=== PATIENT | female | born 1960 | race Caucasian/White ===

== ENCOUNTER 2019-04-11 10:06 | Emergency (ER) | payer BC, SELFPAY ==
[2019-04-11 10:21] VITALS: BP 140/87; PULSE 65; RESP 16; TEMP 36.1; O2SAT 100
[2019-04-11 10:41] LABS: Bilirubin Negative (Negative); Blood Moderate (Negative); Clarity Clear; Glucose Negative (Negative); Ketones Negative (Negative); Leukocyte Esterase Negative (Negative); Nitrite Negative (Negative); Urobilinogen 0.2 EU/dL (Up TO 0.2); pH 5.5 (5-8)
[2019-04-11 10:45] LABS: Bacteria Rare HPF (Negative); C & S Indicated? No; Casts Negative LPF (Negative); Crystals Negative HPF (Negative); Epithelial Cells Rare HPF (Negative); Mucus Moderate (Negative); RBC 20-50 (0-2); WBC 0-2 HPF (0-5)
--- NOTE | 2019-04-11 10:59 | ED.GENADUL_ITS ---
Discharge Plan Disposition Patient Disposition: HOME Condition: Improving Discharge Details Chief Complaint: Urinary Clinical Impression: Left ureteral calculus Primary Care Provider: None,None ED Provider: Tesha Marin Home Meds and New Rx's Prescriptions: Continued metoprolol succinate 25 mg Tablet Extended Release 24 Hr 25 mg PO DAILY RF: 0 Discharge Instructions Instructions: Ureteral Stones (ED) Additional Instructions: Drink plenty of fluids. Alternate Tylenol and Motrin as needed and directed for pain. Call urology tomorrow morning to schedule a follow-up appointment for reevaluation. Return to the emergency department with any worsening or new concerning symptoms such as fever or worsening pain. Referrals: Christopher Sandhu MD [ [facility] STAFF PHYSICIAN] - Discharge Data Discharge Physician: Tesha Marin Medical Decision Making 58-year-old female with a history of cardiomyopathy and cardiac arrest status post marathon with history of pacemaker and defibrillator in 2011 who presents with left flank, suprapubic pain and urinary frequency since last night. She has a history of kidney stones but states this is not similar. Abdomen soft and nontender. No CVA tenderness. Patient appears nontoxic. Vitals within normal limits. Afebrile. No focal deficits. Urinalysis obtained on arrival and is negative for infection but notes blood. Differential diagnosis likely kidney stone, pyelonephritis. No complaint of tearing midline abdominal pain so not consistent with dissection. Will place an IV, bolus IV fluids, labs and obtain CT renal colic and will give a dose of Toradol and reassess. 1230 --labs and imaging reviewed. Normal white blood cell count, electrolytes. Normal renal function. CT notes 2 mm stone in the bladder consistent with recently past ureteral calculus Patient admits to significant improvement in pain. Instructed to drink plenty of fluids. We will send home with a strainer. She is instructed to alternate Tylenol and Motrin for pain. Patient is currently traveling on an RV throughout the country but will be here for another month.. Will place patient on Dr. Sandhu's list for follow-up. She is instructed to return here if she has any worsening or new concerning symptoms. Medical Records Medical records reviewed: Yes I reviewed the patient's medical records. Imaging Data Radiologic Study: Radiologist's impression: CT Abdomen and Pelvis Without Contrast EXAM DATE/TIME: 04/11/2019 11:15 AM CLINICAL HISTORY: 58 years old, female; Signs and symptoms; Other: L flank, suprapubic pain, R/O stone; Additional info: Pulsating abd aorta, R/O aaa TECHNIQUE: Imaging protocol: Axial computed tomography images of the abdomen and pelvis without contrast. Coronal and sagittal reformatted images were created and reviewed. Radiation optimization: All CT scans at this facility use at least one of these dose optimization techniques: automated exposure control; mA and/or kV adjustment per patient size (includes targeted exams where dose is matched to clinical indication); or iterative reconstruction. COMPARISON: No relevant prior studies available. FINDINGS: Tubes, catheters and devices: Pacemaker wire noted. Mediastinum: Small hiatal hernia. ABDOMEN: Liver: Normal. No mass. Gallbladder and bile ducts: Normal. No calcified stones. No ductal dilation. Pancreas: Normal. No ductal dilation. Spleen: Normal. No splenomegaly. Adrenals: Normal. No mass. Kidneys and ureters: There is mild left hydronephrosis and hydroureter. There is a 2 mm calcification present in the bladder, presumably recently passed from the left ureter. Stomach and bowel: Normal. No obstruction. No mucosal thickening. Appendix: No evidence of appendicitis. PELVIS: Bladder: 2 mm calcification. See above. Reproductive: Unremarkable as visualized. ABDOMEN and PELVIS: Intraperitoneal space: Normal. No free air. No significant fluid collection. Bones/joints: No acute fracture. No dislocation. Soft tissues: Unremarkable. Vasculature: Moderate atherosclerotic change present in the vasculature. Lymph nodes: Normal. No enlarged lymph nodes. IMPRESSION: Apparent recently passed left ureteral calculus. It lies in the bladder. Lab Data Lab results reviewed: Yes I reviewed the patient's lab results. Laboratory Tests Range/Units 04/11/19 04/11/19 04/11/19 10:18 12:00 12:00 WBC (4.4-10.8) k/cumm 6.78 RBC (4.00-5.20) m/cumm 4.42 Hgb (12.0-15.5) g/dL 13.7 Hct (36.0-46.0) % 40.6 MCV (80-95) fL 91.9 MCH (27.0-33.0) pg 31.0 MCHC (32.0-36.0) g/dL 33.7 RDW (11.7-14.6) % 12.9 Plt Count (130-400) x1000/uL 277 MPV (8.0-11.0) fL 9.8 Immature Gran % 0.1 Neutrophils % 61.5 Lymphocytes % 29.5 Monocytes % 7.8 Eosinophils % 0.4 Basophils % 0.7 Absolute Neutrophils (1.2-6.7) k/cumm 4.16 Absolute Lymphocytes (1.2-3.4) k/cumm 2.00 Absolute Monocytes (0.11-0.7) k/cumm 0.53 Absolute Eosinophils (0.0-0.7) k/cumm 0.03 Absolute Basophils (0.0-0.2) k/cumm 0.05 Sodium (136-145) mmol/L 142 Potassium (3.5-5.1) mmol/L 4.0 Chloride (98-107) mmol/L 104 Carbon Dioxide (21.0-32.0) mmol/L 28.4 Anion Gap (3-11) mmol/L 9.6 BUN (7-18) mg/dL 15 Creatinine (0.55-1.02) mg/dL 1.16 H Estimated GFR/1.73 m2 (mL/min/1.73m2) 47.82 Glucose (70-100) mg/dL 108 H Calcium (8.5-10.1) mg/dL 9.5 Total Bilirubin (0.2-1.0) mg/dL 0.4 AST (15-37) U/L 26 ALT (12-78) U/L 22 Alkaline Phosphatase (46-116) U/L 73 Total Protein (6.4-8.2) g/dL 7.9 Albumin (3.4-5.0) g/dL 4.1 Lipase (73-393) U/L 147 Urine Color (Yellow) Yellow Urine Clarity Clear Urine pH (5-8) 5.5 Ur Specific [place] (1.005-1.025) 1.020 Urine Protein (Negative) mg/dL Negative Urine Ketones (Negative) mg/dL Negative Urine Blood (Negative) Moderate H Urine Nitrite (Negative) Negative Urine Bilirubin (Negative) Negative Urine Urobilinogen (Up TO 0.2) EU/dL 0.2 Ur Leukocyte Esterase (Negative) Negative Urine RBC (0-2) 20-50 H Urine WBC (0-5) HPF 0-2 Ur Epithelial Cells (Negative) HPF Rare Urine Crystals (Negative) HPF Negative Urine Bacteria (Negative) HPF Rare Urine Casts (Negative) LPF Negative Urine Mucus (Negative) Moderate Ur Culture Indicated? No Urine Glucose (Negative) mg/dL Negative HPI General Mode of arrival: ambulatory . Date/Time Provider Initiated Documentation: 04/11/19 10:22 . Limitations to Documentation: no limitations . Information obtained by: patient . HPI Narrative: Patient is a 58-year-old female with a history of cardiomyopathy and cardiac arrest after a marathon in 2011 followed by pacemaker defibrillator who presents with left flank pain, suprapubic pain since yesterday. Patient describes the pain is intermittent, sharp and crampy. States the pain is somewhat improved and currently 5/10. She admits to some nausea but denies any vomiting or fever. She admits to some urinary frequency last night but denies any dysuria, hematuria. She does admit to a history of a kidney stone but states this does not feel similar to this. Related Data Home Medications Medication Instructions Recorded Confirmed metoprolol succinate 25 mg PO DAILY 04/11/19 04/11/19 Allergies Allergy/AdvReac Type Severity Reaction Status Date / Time Sulfa (Sulfonamide Allergy Intermediate Skin Rash Unverified 04/11/19 10:25 Antibiotics) General Stated Complaint: Urinary DIOMEDES: 3 Review of Systems Review of Systems All systems reviewed & are unremarkable except as noted in HPI and below Constitutional Reports as per HPI, Denies chills and Denies fever(s) Eyes Denies blurry vision ENT Denies dizziness, Denies sore throat and Denies throat swelling Cardiovascular Denies chest pain and Denies dyspnea Respiratory Denies cough and Denies dyspnea Gastrointestinal Denies abdominal pain, Denies diarrhea, Reports nausea and Denies vomiting Genitourinary Denies hematuria, Reports urinary frequency, Denies dysuria, Reports flank pain, Denies urinary hesitancy and Denies urinary urgency Musculoskeletal Denies back pain and Denies numbness Integumentary/Breasts Denies lesions and Denies rash Neurologic Denies dizziness, Denies focal weakness and Denies numbness Allergic/Immunologic Denies throat swelling [facility] Medical History Cardiac arrest (Chronic) Cardiomyopathy (Chronic) Surgical History AICD (automatic cardioverter/defibrillator) present (Chronic) Pacemaker (Chronic) Social History Smoking/Tobacco Use Status: Never Alcohol Intake: current Alcohol Intake frequency: a few times a month Alcohol type: hard liquor Substance use type: does not use Exam Const General: cooperative, healthy appearing and no acute distress HENMT Head: normal to inspection Face and sinus: normal facial exam Eyes General: appearance normal, both eyes and all related structures EOM: EOM intact bilaterally Neck Neck: normal visual inspection and No submandibular swelling Lymphatic: no lymphadenopathy noted Chest Chest: normal inspection of the chest and no tenderness Resp Effort & Inspection: normal respiratory effort and able to speak in complete sentences Auscultation: clear to auscultation bilaterally Cardio Rate: regular rate Rhythm: regular rhythm GI Inspection: normal to inspection and no visible pulsation Palpation: soft, not firm, not rigid and nontender Auscultation: normal bowel sounds Back/Spine/Pelvis Back: no CVA tenderness Thoracic/Lumbar Spine: thoracic and lumbar spine normal to inspection Skin General skin exam: no rashes or lesions noted Neuro General: alert, awake and oriented x3 Cognition: normal cognition Speech: speech normal Motor: muscle tone normal throughout Sensory Exam: no sensory deficits noted Extrem General: normal to inspection, full ROM and no edema Psych Appearance: grossly normal Mental Status: mental status grossly normal Speech and Movement: speech and movement normal Affect: normal affect Course Vital Signs Temperature 97.0 F L 04/11/19 10:21 Pulse 65 04/11/19 10:21 Respiratory Rate 16 04/11/19 10:21 Blood Pressure 140/87 04/11/19 10:21 Pulse Oximetry 100 04/11/19 10:21 Temperature 97.0 F L 04/11/19 10:21 Temperature Source Skin 04/11/19 10:21 Pulse 65 04/11/19 10:21 Respiratory Rate 16 04/11/19 10:21 Respiratory Effort Non-Labored 04/11/19 10:21 Blood Pressure 140/87 04/11/19 10:21 Blood Pressure Position Sitting 04/11/19 10:21 Pulse Oximetry 100 04/11/19 10:21 Oxygen Delivery Method Room Air 04/11/19 10:21 Oxygen Flow Rate 0 04/11/19 10:21 Pain Level 5 04/11/19 10:21 Lab/Test Results Lab/Test Results: Laboratory Tests Range/Units 04/11/19 10:18 Urine Color (Yellow) Yellow Urine Clarity Clear Urine pH (5-8) 5.5 Ur Specific [place] (1.005-1.025) 1.020 Urine Protein (Negative) mg/dL Negative Urine Ketones (Negative) mg/dL Negative Urine Blood (Negative) Moderate H Urine Nitrite (Negative) Negative Urine Bilirubin (Negative) Negative Urine Urobilinogen (Up TO 0.2) EU/dL 0.2 Ur Leukocyte Esterase (Negative) Negative Urine RBC (0-2) 20-50 H Urine WBC (0-5) HPF 0-2 Ur Epithelial Cells (Negative) HPF Rare Urine Crystals (Negative) HPF Negative Urine Bacteria (Negative) HPF Rare Urine Casts (Negative) LPF Negative Urine Mucus (Negative) Moderate Ur Culture Indicated? No Urine Glucose (Negative) mg/dL Negative
--- NOTE | 2019-04-11 11:13 | DI.CT_ITS ---
SYMPTOM/DIAGNOSIS: LT FLANK AND SUPRAPUBIC PAIN, ? STONE, PULSATING AORTA, ? AAA ABDOMEN AND PELVIC CT: CT examination of the abdomen and pelvis was performed without contrast administration. Images obtained through the lung bases are unremarkable. There are a few subcentimeter, low attenuation hepatic lesions consistent with cysts. Spleen is unremarkable in appearance. Gallbladder and bile ducts are CT normal. Pancreas appears intact. Abdominal aorta is of normal diameter. No significant abdominal wall hernia is seen. No significant abdominal or pelvic adenopathy is seen. There is trace free fluid in the pelvis. There is a normal appearance of the appendix. No evidence of diverticulitis or bowel obstruction. Right kidney is normal in appearance and right ureter is unremarkable. On the left, there is mild hydronephrosis and hydroureter to the level of the ureterovesical junction. There is a presumed passed 2 mm. in diameter intravesical stone. CONCLUSION: Findings consistent with recently passed left ureteral stone with mild left hydronephrosis and hydroureter.
[2019-04-11] MEDS: Normal Saline 1,000 ML 1000 ML IV (12:00)
[2019-04-11] MEDS: Ketorolac 30 MG/ML VIAL IVP (12:05)
[2019-04-11 12:06] LABS: Abs Immature Grans 0.01 k/cumm (0.0-0.09); Absolute Basophil Count 0.05 k/cumm (0.0-0.2); Absolute Eosinophil Count 0.03 k/cumm (0.0-0.7); Absolute Monocyte Count 0.53 k/cumm (0.11-0.7); Absolute Neutrophil Count 4.16 k/cumm (1.2-6.7); Basophils % 0.7; Eosinophils % 0.4; HCT 40.6 % (36.0-46.0); HGB 13.7 g/dL (12.0-15.5); Immature Grans % 0.1; Lymphocytes % 29.5; Mean Corp. HGB Concentration 33.7 g/dL (32.0-36.0); Mean Corpuscular Volume 91.9 fL (80-95); Mean Platelet Volume 9.8 fL (8.0-11.0); Monocytes % 7.8; Neutrophils % 61.5; Platelet Count 277 x1000/uL (130-400); RBC 4.42 m/cumm (4.00-5.20); RBC Distribution Width 12.9 % (11.7-14.6); White Blood Cell Count 6.78 k/cumm (4.4-10.8)
[2019-04-11 12:18] LABS: ALT 22 U/L (12-78); AST 26 U/L (15-37); Albumin 4.1 g/dL (3.4-5.0); Alkaline Phosphatase 73 U/L (46-116); Anion Gap 9.6 mmol/L (3-11); BUN 15 mg/dL (7-18); Bilirubin, Total 0.4 mg/dL (0.2-1.0); CO2 28.4 mmol/L (21.0-32.0); CREATININE 1.16 mg/dL (0.55-1.02); Calcium 9.5 mg/dL (8.5-10.1); Chloride 104 mmol/L (98-107); Estimated GFR 47.82 (mL/min/1.73m2); Glucose 108 mg/dL (70-100); Lipase 147 U/L (73-393); Sodium 142 mmol/L (136-145); Total Protein 7.9 g/dL (6.4-8.2)
--- NOTE | 2019-04-11 12:18 | DI.VRAD_ITS ---
EXAM: CT Abdomen and Pelvis Without Contrast EXAM DATE/TIME: 04/11/2019 11:15 AM CLINICAL HISTORY: 58 years old, female; Signs and symptoms; Other: L flank, suprapubic pain, R/O stone; Additional info: Pulsating abd aorta, R/O aaa TECHNIQUE: Imaging protocol: Axial computed tomography images of the abdomen and pelvis without contrast. Coronal and sagittal reformatted images were created and reviewed. Radiation optimization: All CT scans at this facility use at least one of these dose optimization techniques: automated exposure control; mA and/or kV adjustment per patient size (includes targeted exams where dose is matched to clinical indication); or iterative reconstruction. COMPARISON: No relevant prior studies available. FINDINGS: Tubes, catheters and devices: Pacemaker wire noted. Mediastinum: Small hiatal hernia. ABDOMEN: Liver: Normal. No mass. Gallbladder and bile ducts: Normal. No calcified stones. No ductal dilation. Pancreas: Normal. No ductal dilation. Spleen: Normal. No splenomegaly. Adrenals: Normal. No mass. Kidneys and ureters: There is mild left hydronephrosis and hydroureter. There is a 2 mm calcification present in the bladder, presumably recently passed from the left ureter. Stomach and bowel: Normal. No obstruction. No mucosal thickening. Appendix: No evidence of appendicitis. PELVIS: Bladder: 2 mm calcification. See above. Reproductive: Unremarkable as visualized. ABDOMEN and PELVIS: Intraperitoneal space: Normal. No free air. No significant fluid collection. Bones/joints: No acute fracture. No dislocation. Soft tissues: Unremarkable. Vasculature: Moderate atherosclerotic change present in the vasculature. Lymph nodes: Normal. No enlarged lymph nodes. IMPRESSION: Apparent recently passed left ureteral calculus. It lies in the bladder. COMMENT: Preliminary interpretation is based on receipt of 289 image(s). A final report will be issued subsequently. Dictated and Authenticated by: Gemma Nolasco MD. Ordering:JACLYN Parkinson MD
[2019-04-11 13:05] VITALS: BP 136/82; PULSE 62; RESP 16; TEMP 36.1; O2SAT 100
--- NOTE | 2019-04-11 13:41 | NUR.NOTE ---
strainer given to pt at discharge.Nursing Note:
--- NOTE | 2019-04-13 08:21 | PDOC.ERCMPRO ---
Care Management Progress Note 04/13-Dr. Marin requested assistance with an urology f/u for kidney stone. Referral faxed [facility] this am.
== END 2019-04-11 12:56 | disposition home or self-care (01) ==
PROVIDERS: Emergency Provider Physician Assistant
DX: N20.1 Calculus of ureter (principal)
CPT/HCPCS: 36415; 80053; 83690; 96361; 96374; 99285; 74176; 81003; 81015; 85025; 99284; J1885